=== PATIENT | female | born 2000 | race Caucasian/White ===

== ENCOUNTER 2022-04-27 16:26 | Emergency (ER) | payer MEDICAID ==
[~2022-04-27] VITALS: Ht 165.1 cm; Wt 78.0 kg
[2022-04-27] MEDS ORDERED: ACETAMINOPHEN 325MG TABLET PO STA (16:53)
[2022-04-27] MEDS ORDERED: KETOROLAC 60MG/2ML VIAL IM STA (16:53)
[2022-04-27] MEDS ORDERED: CYCL10TA21 MT (19:17)
[2022-04-27] MEDS ORDERED: IBUP-2029 MT (19:17)
[2022-04-27 19:40] VITALS: BP 120/80
== END 2022-04-27 19:40 | disposition home or self-care (01) ==
LOC: ER 16:26
DX: S10.93XA Contusion of unspecified part of neck, initial encounter (principal); S30.0XXA Contusion of lower back and pelvis, initial encounter; V89.2XXA Person injured in unspecified motor-vehicle accident, traffic, initial encounter; Y93.89 Activity, other specified; Y92.89 Other specified places as the place of occurrence of the external cause; Y99.8 Other external cause status
CPT/HCPCS: 70450; 72125; 72131; 96372; 99284; J1885